=== PATIENT | female | born 1990 | race Caucasian/White ===

== ENCOUNTER 2017-10-30 14:49 | Emergency (ER) | payer OTHER ==
[2017-10-30] MEDS ORDERED: LIDOCAINE 1%/EPI (MDV) 50 ML INJ INJ (15:00)
[2017-10-30] MEDS: LIDOCAINE 2%/EPI (MDV) 20ML INJ INJ (15:05)
[2017-10-30] MEDS: HYDROmorphONE 2 MG/ML SYG IV (15:13)
[2017-10-30] MEDS: ONDANSETRON 4 MG INJ IV (15:13)
[2017-10-30] MEDS: SOD CHLORIDE 0.9% 500 ML IV (15:13)
[2017-10-30] MEDS: DIPHTH/TET/ACEL PERTUSS (ADULT) 0.5 ML VIAL IM* (15:41)
== END 2017-10-30 18:14 | disposition home or self-care (01) ==
LOC: E/R 14:49
DX: S01.00XA Unspecified open wound of scalp, initial encounter (principal); S06.0X0A Concussion without loss of consciousness, initial encounter; S80.12XA Contusion of left lower leg, initial encounter; V49.40XA Driver injured in collision with unspecified motor vehicles in traffic accident, initial encounter; Z23 Encounter for immunization
CPT/HCPCS: 12011; 36415; 70450; 70486; 71045; 72170; 73550; 84703; 90471; 90715; 96374; 96375; 99285-25

== ENCOUNTER 2017-11-02 01:07 | Emergency (ER) | payer OTHER ==
[2017-11-02] MEDS: OXYCODONE/ACETAMINOPHEN (5/325) TAB PO (01:42)
== END 2017-11-02 02:47 | disposition home or self-care (01) ==
LOC: FTE 01:07
DX: S06.0X0D Concussion without loss of consciousness, subsequent encounter (principal); V89.2XXD Person injured in unspecified motor-vehicle accident, traffic, subsequent encounter
CPT/HCPCS: 99284; Z7610

== ENCOUNTER 2018-07-07 23:03 | Outpatient (CLI) | payer OTHER ==
[2018-07-08 03:40] LABS: RUPTURE FETAL MEMBRANES NEGATIVE (NEGATIVE)
== END 2018-07-08 04:30 | disposition home or self-care (01) ==
LOC: OBT 23:03 → L-D 23:05 → OBT 07-08 04:30
DX: O26.893 Other specified pregnancy related conditions, third trimester (principal); Z3A.33 33 weeks gestation of pregnancy; J11.1 Influenza due to unidentified influenza virus with other respiratory manifestations
CPT/HCPCS: 76815; 84112

== ENCOUNTER 2018-07-08 04:32 | Emergency (ER) | payer OTHER ==
[2018-07-08] MEDS: ACETAMINOPHEN 500 MG TAB PO (05:14)
== END 2018-07-08 05:21 | disposition home or self-care (01) ==
LOC: FTE 04:32
DX: O99.513 Diseases of the respiratory system complicating pregnancy, third trimester (principal); J06.9 Acute upper respiratory infection, unspecified; Z3A.33 33 weeks gestation of pregnancy
CPT/HCPCS: 99282; Z7502